=== PATIENT | female | born 1950 | race Caucasian/White ===

== ENCOUNTER 2021-02-06 10:32 | Emergency (ER) | payer MEDICARE, OTHER ==
[~2021-02-06] VITALS: Ht 160 cm; Wt 62.6 kg
[~2021-02-06 10:32] MED LIST: LIPITOR20 MG PO; LOPRESSOR50 MG PO; LOSARTAN-HCTZ1 EAC1 PO; PRILOSEC20 MG PO; ZOLOFT100 MG PO
[2021-02-06 13:31] LABS: BASOPHIL 0.5 % (0-2); EOSINOPHIL 2.9 % (0-7); HCT 43.3 % (37.0-47.0); HGB 14.3 g/dl (12.5-16.0); LYMPHOCYTE 25.2 % (15-48); MCH 30.8 pg (25.0-31.0); MCV 93.1 fL (78.0-100.0); MONOCYTE 12.5 % (0-12); MPV 9.9 fL (6.0-9.5); NEUTROPHIL 58.3 % (41-80); NRBC 0; PLT 286 K/uL (150-400); RBC 4.65 M/uL (4.20-5.40); RDW 12.9 % (11.5-14.0); WBC 10.6 K/uL (4.0-10.5)
[2021-02-06 13:32] LABS: INR 1.13 (0.9-1.2); PROTHROMBIN TIME 13.9 SECONDS (11.8-13.4); PTT 28.7 SECONDS (24.4-34.7)
[2021-02-06 13:33] LABS: D-DIMER 0.39 ug/mLFEU (0.00-0.41)
[2021-02-06 13:40] LABS: ALBUMIN 3.7 g/dL (3.4-5.0); BILIRUBIN - TOTAL 0.7 mg/dL (0.2-1.0); BUN/CREAT RATIO (CALC) 20.2 RATIO; CREATININE 0.89 mg/dL (0.51-0.95); GLOBULIN (CALCULATION) 3.6 g/dL; POTASSIUM 3.5 mmol/L (3.5-5.1); TOTAL PROTEIN 7.3 g/dL (6.4-8.2)
[2021-02-06 14:10] LABS: BILIRUBIN NEGATIVE (NEGATIVE); BLOOD NEGATIVE Ery/uL (NEGATIVE); CLARITY CLEAR (CLEAR); COLOR YELLOW (YELLOW); GLUCOSE (U) NORMAL (NORMAL); LEUKOCYTES TRACE Leu/uL (NEGATIVE); NITRITE NEGATIVE (NEGATIVE); PROTEIN NEGATIVE (NEGATIVE); SPECIFIC GRAVITY 1.025 (1.001-1.030); UROBILINOGEN 0.2 mg/dL (0.2-1.0)
[2021-02-06 14:16] LABS: URINARY WBC RARE
[2021-02-06] MEDS ORDERED: CELEBREX **OUT100 MG PO (15:43)
== END 2021-02-06 15:51 | disposition home or self-care (01) ==
LOC: FER 10:32
PROVIDERS: Emergency Medicine
DX: R07.89 Other chest pain (principal); I10 Essential (primary) hypertension; Z88.0 Allergy status to penicillin
CPT/HCPCS: 36415; 71045; 71260; 80053; 81001; 85025; 85379; 85610; 85730